=== PATIENT | female | born 1980 | race Caucasian/White ===

== ENCOUNTER 2017-01-25 16:14 | Emergency (ER) | payer BC ==
[~2017-01-25] VITALS: Ht 157.5 cm; Wt 91.0 kg
[2017-01-25] MEDS ORDERED: GADODIAMIDE PF 287 MG/ML 20 ML VIAL (for RAD MRI) IVCONTRAST ONE (16:15)
[2017-01-25 16:17] VITALS: BP 133/82; PULSE 80; RESP 14; TEMP 98.5; O2SAT 100
[2017-01-25] MEDS ORDERED: PRED5TAB PO (16:31)
[2017-01-25] MEDS ORDERED: SODIUM CHLOR 0.9% 1000 ML INJ 1,000 ML IV SCH (16:43)
[2017-01-25] MEDS ORDERED: SODIUM CHLORIDE 0.9% FLUSH 10 ML FLUSH IV FLUSH PRN (16:45)
[2017-01-25] MEDS ORDERED: DEXAMETHASONE SOD PHOS 20 MG/5 ML VIAL IV PUSH ONE (16:45)
--- NOTE | 2017-01-25 17:12 | PD ---
HPI Chief Complaint: Eye Problems/Injury Time Seen by Provider: 16:43 Travel History International Travel<30 days: No Contact w/Intl Traveler<30days: No Traveled to known affect area: No History of Present Illness HPI 36-year-old Afro-Turkish female presents the emergency department with history of visual changes that began on January 10, 2017. Patient has been seen multiple times in the last 2 weeks in the emergency room as well as by her primary care physician as well as by a neurologist and ear nose and throat doctor and armed security professional. Patient originally had symptoms of Compression while driving on January 10. Patient states she did not think much of it, but then in the next couple of days she had intermittent blurry vision, and also severe headache with pressure across her sinuses, seen in the emergency department in [place], and diagnosed with a migraine and discharged home. No CT scan was done at that time. Patient continued to have sinusitis pressure and visual changes and saw her primary care physician the next day. She was given antibiotics and a steroid by mouth for presumed sinus infection. Patient was then referred to neurology and ear nose and throat doctor. She states her symptoms in terms of the headache improved with the steroids and antibiotics after a day, but visual changes remained including a yellow tint to her vision, and blurred vision. She states the yellow tint symptom has improved although she continues to have blurred vision. Patient saw the neurologist who is unsure why she was there, and a CT was performed showing no obvious finding according to the patient. She saw an paid search specialist who ordered a sinus CT which again showed no obvious acute disease according to the patient. Patient was seen today by an armed security professional, who feels that he is suffering from papilledema, and she was referred here for a stat MRI of the brain and orbits with secondary neurology consult. Patient states her headache is still improved from previous since taking the oral steroids and antibiotic. Patient has no history of diabetes or neurological disease in the past. He denies changes in her weight or menstrual cycle. She has no fever, chills, or nausea or vomiting. She has no known drug allergies. PFSH Past Medical History Diminished Hearing: No Genitourinary: Yes (uti hx ) Tetanus Vaccination: > 5 Years Influenza Vaccination: No ?: Not : 4 Past Surgical History Section: Yes (x 4) Social History Alcohol Use: No Tobacco Use: No Substance Use: No Allergies-Medications (Allergen,Severity, Reaction): Coded Allergies: No Known Allergies (Unverified , 01/25/17) Reported Meds & Prescriptions Reported Meds & Active Scripts Active Reported Prednisone 5 Mg Tab 5 Mg PO DAILY 6 Days Review of Systems Except as stated in HPI: all other systems reviewed are Neg General / Constitutional: No: Fever Eyes: Positive: Blurred Vision, Photophobia, Visual changes, No: Diploplia, Drainage, Redness, Foreign Body Sensation, Pain, Tearing, Blind Spots, Blindness HENT: Positive: Headaches (see history present illness), No: Vertigo ( improved from previous. See history of present illness), Lightheadedness, Sore Throat, Rhinitis, Rhinorrhea, Congestion, Nosebleed, Neck Stiffness, Neck Pain, Dental Difficulties, Earache Cardiovascular: No: Chest Pain or Discomfort Respiratory: No: Shortness of Breath Gastrointestinal: No: Abdominal Pain Genitourinary: No: Dysuria Musculoskeletal: No: Pain Skin: No Rash Neurologic: No: Weakness Psychiatric: No: Depression Endocrine: No: Polydipsia Hematologic/Lymphatic: No: Easy Bruising Physical Exam Narrative GENERAL: Patient appears in no acute distress. SKIN: Warm and dry. Normal color. Normal turgor. HEAD: Atraumatic. Normocephalic. EYES: Pupils equal and round. There is diminished pupillary reflex, and both pupils appear enlarged at 4 mm No scleral icterus. No injection or drainage. Ophthalmoscopic exam shows suspicion for bilateral papilledema. Visual acuity is diminished in both eyes equally. ENT: No nasal bleeding or discharge. Mucous membranes pink and moist. There is no sinus tenderness to palpation. TMs are clear bilaterally. Pharynx is clear. NECK: Trachea midline. Supple and nontender. No palpable thyroid. No lymphadenopathy. CARDIOVASCULAR: Regular rate and rhythm. RESPIRATORY: No accessory muscle use. Clear to auscultation. Breath sounds equal bilaterally. GASTROINTESTINAL: Abdomen soft, non-tender, nondistended. Hepatic and splenic margins not palpable. MUSCULOSKELETAL: Extremities without clubbing, cyanosis, or edema. No obvious deformities. NEUROLOGICAL: Awake and alert. No obvious cranial nerve deficits. Motor grossly within normal limits. Five out of 5 muscle strength in the arms and legs. Normal speech. PSYCHIATRIC: Appropriate mood and affect; insight and judgment normal. Data Data Last Documented VS Vital Signs Date Time Temp Pulse Resp B/P (MAP) Pulse Ox O2 Delivery O2 Flow Rate FiO2 01/25/17 16:55 (99) 01/25/17 16:32 86 17 01/25/17 16:17 98.5 100 Orders Orders Complete Blood Count With Diff (01/25/17 16:43) Comprehensive Metabolic Panel (01/25/17 16:43) Prothrombin Time / Inr (Pt) (01/25/17 16:43) Act Partial Throm Time (Ptt) (01/25/17 16:43) Iv Access Insert/Monitor (01/25/17 16:43) Ecg Monitoring (01/25/17 16:43) Oximetry (01/25/17 16:43) Sodium Chlor 0.9% 1000 Ml Inj (Ns 1000 M (01/25/17 16:43) Sodium Chloride 0.9% Flush (Ns Flush) (01/25/17 16:45) Dexamethasone Inj (Decadron Inj) (01/25/17 16:45) Mri Brain W&W/O Contrast (01/25/17 ) Mri Orbits W&W/O Contrast (01/25/17 ) Westergren Sedimentation Rate (01/25/17 17:15) C-Reactive Protein (Crp) (01/25/17 16:43) Gadodiamide Pf Inj (Omniscan Pf Inj) (01/25/17 16:15) Labs Laboratory Tests Test 01/25/17 16:55 White Blood Count 10.9 TH/MM3 Red Blood Count 4.32 MIL/MM3 Hemoglobin 11.9 GM/DL Hematocrit 36.0 % Mean Corpuscular Volume 83.5 FL Mean Corpuscular Hemoglobin 27.5 PG Mean Corpuscular Hemoglobin Concent 33.0 % Red Cell Distribution Width 14.7 % Platelet Count 217 TH/MM3 Mean Platelet Volume 9.2 FL Neutrophils (%) (Auto) 76.4 % Lymphocytes (%) (Auto) 14.1 % Monocytes (%) (Auto) 8.2 % Eosinophils (%) (Auto) 0.7 % Basophils (%) (Auto) 0.6 % Neutrophils # (Auto) 8.4 TH/MM3 Lymphocytes # (Auto) 1.5 TH/MM3 Monocytes # (Auto) 0.9 TH/MM3 Eosinophils # (Auto) 0.1 TH/MM3 Basophils # (Auto) 0.1 TH/MM3 CBC Comment DIFF FINAL Differential Comment Erythrocyte Sedimentation Rate 34 mm/hr Prothrombin Time 10.9 SEC Prothromb Time International Ratio 1.0 RATIO Activated Partial Thromboplast Time 23.2 SEC Blood Urea Nitrogen 10 MG/DL Creatinine 0.69 MG/DL Random Glucose 99 MG/DL Total Protein 7.7 GM/DL Albumin 3.6 GM/DL Calcium Level 8.9 MG/DL Alkaline Phosphatase 102 U/L Aspartate Amino Transf (AST/SGOT) 15 U/L Alanine Aminotransferase (ALT/SGPT) 21 U/L Total Bilirubin 0.2 MG/DL Sodium Level 139 MEQ/L Potassium Level 3.6 MEQ/L Chloride Level 106 MEQ/L Carbon Dioxide Level 27.5 MEQ/L Anion Gap 6 MEQ/L Estimat Glomerular Filtration Rate 97 ML/MIN C-Reactive Protein 0.39 MG/DL MDM Medical Decision Making Medical Screen Exam Complete: Yes Emergency Medical Condition: Yes Differential Diagnosis Visual changes. Headache. Papilledema. Narrative Course Patient is medically stable at time of exam. Labs ordered including CBC, CMP, sedimentation rate,CRP. IV access is obtained. Patient is given without rales normal saline bolus as well as 10 mg Decadron IV. MRI of the brain with and without contrast as well as the orbits with and without contrast was ordered. CBC is unremarkable. CMP is unremarkable. Sedimentation rate is elevated at 34. CRP is elevated at 0.39 Coagulation studies are unremarkable. MRI of both the brain and the orbits are negative for acute findings per radiologist. Patient is discussed with Dr. Proctor, and spinal tap was offered to the patient who refused. Call was placed to the neurologist public relations manager to discuss the patient. Call was returned by Dr. Rojas, who recommended scheduling the patient for an MRV with and without contrast, And follow-up with his office. No medication treatment as recommended by Dr. Crespo at this time. Diagnosis Primary Impression: Pseudotumor cerebri syndrome Additional Impression: Binocular visual disturbance Referrals: Tj Rojas MD call for appointment Patient Instructions: General Instructions, Idiopathic Intracranial Hypertension (ED) Departure Forms: Work Release Special Instructions: No work until cleared by neurologist Additional Instructions: CBC is unremarkable. CMP is unremarkable. Sedimentation rate is elevated at 34. CRP is elevated at 0.39 Coagulation studies are unremarkable. MRI of both the brain and the orbits are negative for acute findings per radiologist. Patient is discussed with Dr. Proctor, and spinal tap was offered to the patient who refused. Call was placed to the neurologist public relations manager to discuss the patient. Call was returned by Dr. Rojas, who recommended scheduling the patient for an MRV with and without contrast, And follow-up with his office. No medication treatment as recommended by Dr. Crespo at this time. Disposition: 01 DISCHARGE HOME Condition: Stable Sagar Reynoso Jan 25, 2017 17:12
--- NOTE | 2017-01-25 17:25 | PD ---
Physical Exam Date Seen by Provider: Jan 25, 2017 Narrative This patient was sent here by an ball sorter for evaluation of papilledema Data Data Last Documented VS Vital Signs Date Time Temp Pulse Resp B/P (MAP) Pulse Ox O2 Delivery O2 Flow Rate FiO2 01/25/17 16:55 (99) 01/25/17 16:32 86 17 01/25/17 16:17 98.5 100 Orders Orders Complete Blood Count With Diff (01/25/17 16:43) Comprehensive Metabolic Panel (01/25/17 16:43) Prothrombin Time / Inr (Pt) (01/25/17 16:43) Act Partial Throm Time (Ptt) (01/25/17 16:43) Iv Access Insert/Monitor (01/25/17 16:43) Ecg Monitoring (01/25/17 16:43) Oximetry (01/25/17 16:43) Sodium Chlor 0.9% 1000 Ml Inj (Ns 1000 M (01/25/17 16:43) Sodium Chloride 0.9% Flush (Ns Flush) (01/25/17 16:45) Dexamethasone Inj (Decadron Inj) (01/25/17 16:45) Mri Brain W&W/O Contrast (01/25/17 ) Mri Orbits W&W/O Contrast (01/25/17 ) Westergren Sedimentation Rate (01/25/17 17:15) Labs Laboratory Tests Test 01/25/17 16:55 MDM Supervised Visit with TRACI: Yes Narrative Course I, Dr. Santana, have reviewed the advance practice practitioner's documentation and am in agreement, met with the patient face to face, made the diagnosis, and the medical decision making was done by me. *My assessment and Findings: The patient's pupils are equal and reactive. Extraocular movements are intact. Her pressure was checked by the ball sorter. Please see Edmond Reynoso PA-C's note for results of laboratory and radiographic evaluation, ED course, final diagnosis and disposition Jie Santana MD Jan 25, 2017 17:25
--- NOTE | 2017-01-25 17:25 | PD ---
Physical Exam Date Seen by Provider: Jan 25, 2017 Narrative This patient was sent here by an correctional facility nurse for evaluation of papilledema Data Data Last Documented VS Vital Signs Date Time Temp Pulse Resp B/P (MAP) Pulse Ox O2 Delivery O2 Flow Rate FiO2 01/25/17 16:55 (99) 01/25/17 16:32 86 17 01/25/17 16:17 98.5 100 Orders Orders Complete Blood Count With Diff (01/25/17 16:43) Comprehensive Metabolic Panel (01/25/17 16:43) Prothrombin Time / Inr (Pt) (01/25/17 16:43) Act Partial Throm Time (Ptt) (01/25/17 16:43) Iv Access Insert/Monitor (01/25/17 16:43) Ecg Monitoring (01/25/17 16:43) Oximetry (01/25/17 16:43) Sodium Chlor 0.9% 1000 Ml Inj (Ns 1000 M (01/25/17 16:43) Sodium Chloride 0.9% Flush (Ns Flush) (01/25/17 16:45) Dexamethasone Inj (Decadron Inj) (01/25/17 16:45) Mri Brain W&W/O Contrast (01/25/17 ) Mri Orbits W&W/O Contrast (01/25/17 ) Westergren Sedimentation Rate (01/25/17 17:15) Labs Laboratory Tests Test 01/25/17 16:55 MDM Supervised Visit with TRACI: Yes Narrative Course I, Dr. Santana, have reviewed the advance practice practitioner's documentation and am in agreement, met with the patient face to face, made the diagnosis, and the medical decision making was done by me. *My assessment and Findings: The patient's pupils are equal and reactive. Extraocular movements are intact. Her pressure was checked by the correctional facility nurse. Please see Edmond Reynoso PA-C's note for results of laboratory and radiographic evaluation, ED course, final diagnosis and disposition Jie Santana MD Jan 25, 2017 17:25
--- NOTE | 2017-01-25 17:25 | PD ---
Physical Exam Date Seen by Provider: Jan 25, 2017 Narrative This patient was sent here by an data designer for evaluation of papilledema Data Data Last Documented VS Vital Signs Date Time Temp Pulse Resp B/P (MAP) Pulse Ox O2 Delivery O2 Flow Rate FiO2 01/25/17 16:55 (99) 01/25/17 16:32 86 17 01/25/17 16:17 98.5 100 Orders Orders Complete Blood Count With Diff (01/25/17 16:43) Comprehensive Metabolic Panel (01/25/17 16:43) Prothrombin Time / Inr (Pt) (01/25/17 16:43) Act Partial Throm Time (Ptt) (01/25/17 16:43) Iv Access Insert/Monitor (01/25/17 16:43) Ecg Monitoring (01/25/17 16:43) Oximetry (01/25/17 16:43) Sodium Chlor 0.9% 1000 Ml Inj (Ns 1000 M (01/25/17 16:43) Sodium Chloride 0.9% Flush (Ns Flush) (01/25/17 16:45) Dexamethasone Inj (Decadron Inj) (01/25/17 16:45) Mri Brain W&W/O Contrast (01/25/17 ) Mri Orbits W&W/O Contrast (01/25/17 ) Westergren Sedimentation Rate (01/25/17 17:15) Labs Laboratory Tests Test 01/25/17 16:55 MDM Supervised Visit with TRACI: Yes Narrative Course I, Dr. Santana, have reviewed the advance practice practitioner's documentation and am in agreement, met with the patient face to face, made the diagnosis, and the medical decision making was done by me. *My assessment and Findings: The patient's pupils are equal and reactive. Extraocular movements are intact. Her pressure was checked by the data designer. Please see Edmond Reynoso PA-C's note for results of laboratory and radiographic evaluation, ED course, final diagnosis and disposition Jie Santana MD Jan 25, 2017 17:25
[2017-01-25 17:37] LABS: AUTOMATED NEUTROPHIL # 8.4 TH/MM3 (1.8-7.7); BASOPHIL # 0.1 TH/MM3 (0-0.2); BASOPHIL % 0.6 % (0.0-2.0); EOSINOPHIL # 0.1 TH/MM3 (0-0.4); EOSINOPHIL % 0.7 % (0.0-4.0); HEMOGLOBIN 11.9 GM/DL (11.6-15.3); LYMPH % 14.1 % (9.0-44.0); LYMPHOCYTE # 1.5 TH/MM3 (1.0-4.8); MEAN CELL VOLUME 83.5 FL (80.0-100.0); MEAN CORPUSCULAR HEMOGLOBIN 27.5 PG (27.0-34.0); MEAN PLATELET VOLUME 9.2 FL (7.0-11.0); MONO % 8.2 % (0.0-8.0); MONOCYTE # 0.9 TH/MM3 (0-0.9); NEUT % 76.4 % (16.0-70.0); PLATELET COUNT 217 TH/MM3 (150-450); PROTHROMBIN TIME - PATIENT 10.9 SEC (9.8-11.6); RED BLOOD COUNT 4.32 MIL/MM3 (4.00-5.30); RED CELL DISTRIBUTION WIDTH 14.7 % (11.6-17.2); WHITE BLOOD COUNT 10.9 TH/MM3 (4.0-11.0)
[2017-01-25 17:49] LABS: ALBUMIN 3.6 GM/DL (3.4-5.0); AST (GOT) 15 U/L (15-37); BICARBONATE 27.5 MEQ/L (21.0-32.0); BLOOD UREA NITROGEN 10 MG/DL (7-18); CALCIUM 8.9 MG/DL (8.5-10.1); CHLORIDE 106 MEQ/L (98-107); CREATININE 0.69 MG/DL (0.50-1.00); GLOMERULAR FILTRATION RATE 97 ML/MIN (>89); GLUCOSE,RANDOM 99 MG/DL (74-106); SODIUM (NA) 139 MEQ/L (136-145)
[2017-01-25 17:50] LABS: ALT (GPT) 21 U/L (10-53); C-REACTIVE PROTEIN 0.39 MG/DL (0.00-0.30)
[2017-01-25 17:52] LABS: ALKALINE PHOSPHATASE 102 U/L (45-117); TOTAL BILIRUBIN ADULT 0.2 MG/DL (0.2-1.0); TOTAL PROTEIN 7.7 GM/DL (6.4-8.2)
--- NOTE | 2017-01-25 18:56 | RADRPT ---
EXAM DATE/TIME: 01/25/2017 18:13 [facility] COMPARISON: No previous studies available for comparison. INDICATIONS : Blurred vision. CONTRAST: 18 cc Omniscan (gadodiamide) IV MEDICAL HISTORY : None. SURGICAL HISTORY : section. ENCOUNTER: Initial ACUITY: 2 day PAIN SCORE: 0/10 LOCATION: cranial TECHNIQUE: Multiplanar, multisequence MRI examination was performed. FINDINGS: PRESEPTAL: The preseptal soft tissues are normal thickness. GLOBES: Normal shape without wall thickening. The lens is grossly intact. EXTRAOCULAR MUSCLES: Symmetric and normal thickness. ORBITAL MCNEILL: Intact. The greater wing of the sphenoid is intact. OPTIC NERVES: Normal size. The optic canal is not enlarged. The retroconal fat is normal in appearance. LACRIMAL GLANDS: No evidence of mass. RETROAPICAL REGION: The optic chiasm is grossly intact. The visualized portion of the cavernous sinus and brainstem is i ntact. CONCLUSION: Normal examination. Stu Pearson Jr., MD on January 25, 2017 at 18:54 Board Certified Radiologist. This report was verified electronically.
--- NOTE | 2017-01-25 19:02 | RADRPT ---
EXAM DATE/TIME: 01/25/2017 18:13 [facility] COMPARISON: No previous studies available for comparison. INDICATIONS : Blurred vision. CONTRAST: 18 cc Omniscan (gadodiamide) IV MEDICAL HISTORY : None. SURGICAL HISTORY : section. ENCOUNTER: Initial ACUITY: 1 day PAIN SCORE: 0/10 LOCATION: cranial TECHNIQUE: Multiplanar, multisequence MRI of the brain was performed both prior to and following the administrat ion of paramagnetic contrast. FINDINGS: CEREBRUM: The ventricles are normal for age. No evidence of midline shift, mass lesion, hemorrhage or acute in farction. No extraaxial fluid collections are seen. The pituitary gland and suprasellar cistern are normal in configuration. WHITE MATTER: No significant signal abnormalities are seen in the white matter. POSTERIOR FOSSA: The cerebellum and brainstem are intact. The 4th ventricle is midline. The cerebellopontine angle is unremarkable. The cerebellar tonsils are normal in position. DIFFUSION IMAGING: No focal areas of restricted diffusion are seen. No evidence of acute infarction. EXTRACRANIAL: The visualized portions of the orbits and paranasal sinuses are unremarkable. POST-CONTRAST: No abnormal areas of parenchymal or dural enhancement. No evidence of blood-brain barrier breakdown. CONCLUSION: Normal examination. Stu Pearson Jr., MD on January 25, 2017 at 19:00 Board Certified Radiologist. This report was verified electronically.
== END 2017-01-25 20:23 | disposition home or self-care (01) ==
LOC: NEPE 16:14
DX: G93.2 Benign intracranial hypertension (principal); R51 Headache
CPT/HCPCS: 70543; 70553; 80053; 85025; 85610; 85652; 85730; 86140; 96361; 96374; 99285; A9579; J1100; J7030